=== PATIENT | male | born 1955 | race Caucasian/White ===

== ENCOUNTER 2018-04-12 14:22 | Emergency (ER) | payer OTHER ==
[2018-04-12 14:52] LABS: ADD MAN DIFF? NO
[2018-04-12 14:58] LABS: BASOPHILS % 0.8 % (0.0-2.0); EOSINOPHILS # 0.2 10^3/ul (0.0-0.5); HEMOGLOBIN 11.8 g/dl (14.0-18.0); LYMPHOCYTES # 0.8 10^3/ul (0.8-2.9); LYMPHOCYTES % 16.9 % (15.0-51.0); MEAN CORPUSCULAR HEMOGLOBIN 27.4 pg (29.0-33.0); MEAN CORPUSCULAR HGB CONC 32.8 g/dl (32.0-37.0); MEAN CORPUSCULAR VOLUME 83.7 fl (82.0-101.0); MEAN PLATELET VOLUME 10.8 fl (7.4-10.4); MONOCYTE # 0.5 10^3/ul (0.3-0.9); NEUTROPHIL # 3.2 10^3/ul (1.6-7.5); NEUTROPHILS % 67.1 % (39.0-77.0); PLATELET COUNT 142 10^3/UL (140-415); RED CELL DISTRIBUTION WIDTH 14.4 % (11.5-14.5)
[2018-04-12 14:58] LABS: WHITE BLOOD COUNT 4.8 10^3/ul (4.8-10.8)
[2018-04-12 15:18] LABS: INR 1.57; PROTIME 19.1 Sec (11.9-14.9); PT RATIO 1.5
[2018-04-12 15:19] LABS: PARTIAL THROMBOPLASTIN TIME 32.6 Sec (25.0-35.0)
[2018-04-12] MEDS: LIDOCAINE 1% (MPF) 5 ML VIAL (16:01)
[2018-04-12 17:21] LABS: ALANINE AMINOTRANSFERASE 20 IU/L (13-69); ALBUMIN 3.2 g/dl (3.3-4.9); ALBUMIN/GLOBULIN RATIO 0.76; ALKALINE PHOSPHATASE 196 IU/L (42-121); ANION GAP 12 (8-16); ASPARTATE AMINO TRANSFERASE 30 IU/L (15-46); BILIRUBIN,INDIRECT 0.6 mg/dl (0-1.1); BILIRUBIN,TOTAL 0.6 mg/dl (0.2-1.3); BLOOD UREA NITROGEN 13 mg/dl (7-20); CALCIUM 8.3 mg/dl (8.4-10.2); CARBON DIOXIDE 26 mmol/L (21-31); CHLORIDE 106 mmol/L (97-110); CREATININE 0.91 mg/dl (0.61-1.24); GLUCOSE 217 mg/dl (70-220); LIPASE 47 U/L (23-300); POTASSIUM 3.5 mmol/L (3.5-5.1); SODIUM 140 mmol/L (135-144); TOTAL PROTEIN 7.4 g/dl (6.1-8.1)
== END 2018-04-12 16:23 | disposition home or self-care (01) ==
LOC: E/R 14:22
DX: R18.8 Other ascites (principal); E11.9 Type 2 diabetes mellitus without complications; I10 Essential (primary) hypertension; R10.9 Unspecified abdominal pain; Z79.4 Long term (current) use of insulin; Z98.61 Coronary angioplasty status
CPT/HCPCS: 49083; 80053; 83690; 85025; 85610; 85730; 99285-25

== ENCOUNTER 2018-10-27 18:17 | Inpatient (IN) | payer MEDICAID, OTHER ==
[2018-10-27 19:27] LABS: ADD MAN DIFF? NO
[2018-10-27 19:31] LABS: BASOPHILS % 0.4 % (0.0-2.0); EOSINOPHILS % 0.3 % (0.0-7.0); HEMATOCRIT 40.7 % (42.0-52.0); HEMOGLOBIN 13.3 g/dl (14.0-18.0); LYMPHOCYTES # 0.7 10^3/ul (0.8-2.9); LYMPHOCYTES % 6.9 % (15.0-51.0); MEAN CORPUSCULAR HEMOGLOBIN 26.8 pg (29.0-33.0); MEAN CORPUSCULAR HGB CONC 32.7 g/dl (32.0-37.0); MEAN CORPUSCULAR VOLUME 82.1 fl (82.0-101.0); MONOCYTE # 0.6 10^3/ul (0.3-0.9); MONOCYTES % 5.8 % (0.0-11.0); NEUTROPHIL # 8.5 10^3/ul (1.6-7.5); NEUTROPHILS % 86.3 % (39.0-77.0); PLATELET COUNT 160 10^3/UL (140-415); RED BLOOD COUNT 4.96 10^6/ul (4.70-6.10); RED CELL DISTRIBUTION WIDTH 14.6 % (11.5-14.5)
[2018-10-27 19:31] LABS: WHITE BLOOD COUNT 9.8 10^3/ul (4.8-10.8)
[2018-10-27 19:41] LABS: ALANINE AMINOTRANSFERASE 22 IU/L (13-69); ALBUMIN 3.8 g/dl (3.3-4.9); ALBUMIN/GLOBULIN RATIO 0.73; ALKALINE PHOSPHATASE 294 IU/L (42-121); ANION GAP 16 (5-13); ASPARTATE AMINO TRANSFERASE 50 IU/L (15-46); BILIRUBIN,INDIRECT 1.5 mg/dl (0-1.1); BILIRUBIN,TOTAL 1.5 mg/dl (0.2-1.3); BLOOD UREA NITROGEN 16 mg/dl (7-20); CALCIUM 9.5 mg/dl (8.4-10.2); CARBON DIOXIDE 24 mmol/L (21-31); CHLORIDE 100 mmol/L (97-110); CREATININE 0.76 mg/dl (0.61-1.24); Estimated GFR > 60 mL/min (>60); GLUCOSE 247 mg/dl (70-220); LIPASE 71 U/L (23-300); POTASSIUM 4.1 mmol/L (3.5-5.1); SODIUM 140 mmol/L (135-144)
[2018-10-27] MEDS: SOD CHLORIDE 0.9% 1,000 ML IV (19:49)
[2018-10-27] MEDS: ONDANSETRON 4 MG INJ IV (19:50)
[2018-10-27] MEDS: morphine 4 MG/ML VIAL IV (19:50)
[2018-10-27 19:52] LABS: TROPONIN-I < 0.012 ng/ml (0.000-0.120)
[2018-10-27] MEDS ORDERED: ACETAMINOPHEN 325 MG TAB PO (21:00)
[2018-10-27] MEDS ORDERED: ONDANSETRON 4 MG INJ IV (21:00)
[2018-10-27 21:33] LABS: INR 1.45; PROTIME 17.7 Sec (11.9-14.9); PT RATIO 1.4
[2018-10-27 21:34] LABS: PARTIAL THROMBOPLASTIN TIME 31.1 Sec (23.0-35.0)
[2018-10-27] MEDS ORDERED: NACL 0.9% 3 ML SYG IV (22:30)
[2018-10-27] MEDS ORDERED: GLUCOSE GEL 15 GRAM TUBE BUCCAL (23:00)
[2018-10-27] MEDS ORDERED: DEXTROSE 50% 50 ML SYRINGE IV ×2 (23:00)
[2018-10-27] MEDS ORDERED: GLUCAGON 1 MG INJ IM (23:00)
[2018-10-27] MEDS ORDERED: GLUCOSE GEL 15 GRAM TUBE PO ×2 (23:00)
[2018-10-28] MEDS ORDERED: PROPOFOL 20 ML (00:09)
[2018-10-28] MEDS ORDERED: LIDOCAINE 2% (SDV) 5 ML INJ (00:09)
[2018-10-28] MEDS ORDERED: MIDAZOLAM 1 MG/ML 2 ML INJ (00:09)
[2018-10-28] MEDS ORDERED: ROCURONIUM 50 MG INJ (00:09)
[2018-10-28] MEDS ORDERED: ROPIVACAINE 0.5 % 30 ML VIAL (00:09)
[2018-10-28] MEDS ORDERED: CEFAZOLIN 1 GM INJ (00:30)
[2018-10-28] MEDS ORDERED: metroNIDAZOLE 500 MG/NS (PMX) 100 ML IVPB (00:30)
[2018-10-28] MEDS ORDERED: DESFLURANE 15 MIN (00:30)
[2018-10-28] MEDS ORDERED: VASOPRESSIN 20 UNITS INJ (00:32)
[2018-10-28] MEDS ORDERED: ONDANSETRON 4 MG INJ (00:43)
[2018-10-28] MEDS: LIDOCAINE 1% (MPF) 30 ML INJ (01:00)
[2018-10-28] MEDS: BUPIVACAINE 0.5%/EPI (SDV) 30 ML INJ (01:00)
[2018-10-28] MEDS ORDERED: morphine 10 MG INJ (01:31)
[2018-10-28] MEDS: ACCU-CHEK XX (02:00)
[2018-10-28] MEDS ORDERED: HYDROmorphONE 1 MG/5 ML IV SYRINGE IV ×2 (02:00)
[2018-10-28 06:11] LABS: ADD MAN DIFF? NO
[2018-10-28 06:13] LABS: WHITE BLOOD COUNT 9.7 10^3/ul (4.8-10.8)
[2018-10-28 06:13] LABS: ABNORMAL IP MESSAGE 1; BASOPHILS % 0.3 % (0.0-2.0); EOSINOPHILS % 0.2 % (0.0-7.0); HEMATOCRIT 39.5 % (42.0-52.0); HEMOGLOBIN 12.8 g/dl (14.0-18.0); LYMPHOCYTES # 0.5 10^3/ul (0.8-2.9); MEAN CORPUSCULAR HEMOGLOBIN 27.4 pg (29.0-33.0); MEAN CORPUSCULAR HGB CONC 32.4 g/dl (32.0-37.0); MEAN CORPUSCULAR VOLUME 84.4 fl (82.0-101.0); MEAN PLATELET VOLUME 10.7 fl (7.4-10.4); MONOCYTE # 0.4 10^3/ul (0.3-0.9); MONOCYTES % 4.5 % (0.0-11.0); NEUTROPHIL # 8.7 10^3/ul (1.6-7.5); NEUTROPHILS % 89.9 % (39.0-77.0); PLATELET COUNT 145 10^3/UL (140-415); POSITIVE DIFF @See below; RED BLOOD COUNT 4.68 10^6/ul (4.70-6.10)
[2018-10-28] MEDS: PANTOPRAZOLE 40 MG INJ IV (06:50)
[2018-10-28 07:26] LABS: ALANINE AMINOTRANSFERASE 24 IU/L (13-69); ALBUMIN 3.1 g/dl (3.3-4.9); ALBUMIN/GLOBULIN RATIO 0.72; ALKALINE PHOSPHATASE 208 IU/L (42-121); ANION GAP 11 (5-13); ASPARTATE AMINO TRANSFERASE 36 IU/L (15-46); BILIRUBIN,INDIRECT 1.1 mg/dl (0-1.1); BILIRUBIN,TOTAL 1.5 mg/dl (0.2-1.3); BLOOD UREA NITROGEN 16 mg/dl (7-20); CALCIUM 8.6 mg/dl (8.4-10.2); CARBON DIOXIDE 26 mmol/L (21-31); CHLORIDE 105 mmol/L (97-110); CHOL/HDL RATIO 3.1 RATIO; CHOLESTEROL 136 mg/dl (100-200); CREATININE 0.83 mg/dl (0.61-1.24); Estimated GFR > 60 mL/min (>60); GLUCOSE 236 mg/dl (70-220); HDL CHOLESTEROL 43 mg/dl (30-78); LDL CHOLESTEROL,CALCULATED 73 mg/dl; MAGNESIUM 1.5 mg/dl (1.7-2.5); POTASSIUM 4.3 mmol/L (3.5-5.1); SODIUM 142 mmol/L (135-144); TOTAL PROTEIN 7.4 g/dl (6.1-8.1); TRIGLYCERIDES 99 mg/dl (0-149)
[2018-10-28] MEDS: INSULIN ASPART [NOVOLOG] 3 ML PEN SC ×6 (07:45→21:00)
[2018-10-28 08:00] LABS: ANISOCYTOSIS 1+ (0-0); BAND NEUTROPHILS #M 3.4 10^3/ul (0.0-0.6); BAND NEUTROPHILS % (M) 36 % (0-4); LYMPHOCYTES #M 0.3 10^3/ul (0.8-2.9); LYMPHOCYTES % (M) 4 % (15-51); MICROCYTOSIS 1+ (0-0); MONOCYTES % (M) 1 % (0-11); PLATELET ESTIMATE NORMAL; POIKILOCYTOSIS 1+ (0-0); SEG NEUT #M 6.1 10^3/ul (1.6-7.5); SEGMENTED NEUTROPHILS (M) % 59 % (39-77); SMUDGE%M 2 % (0-0)
[2018-10-28 08:23] LABS: HEMOGLOBIN A1C 10.2 % (0-5.9)
[2018-10-28] MEDS: INSULIN GLARGINE [LANTus] (100 UNITS/ML) SYG SC ×2 (12:00→21:00)
[2018-10-28] MEDS: ONDANSETRON 4 MG INJ IV ×2 (13:33→16:41)
[2018-10-28] MEDS: LACTATED RINGER'S 1,000 ML IV (15:14)
[2018-10-28] MEDS: morphine 2 MG INJ IV (15:27)
[2018-10-29] MEDS: INSULIN ASPART [NOVOLOG] 3 ML PEN SC ×6 (00:39→21:00)
[2018-10-29] MEDS: ACCU-CHEK XX (02:00)
[2018-10-29] MEDS: LACTATED RINGER'S 1,000 ML IV (04:20)
[2018-10-29] MEDS: PANTOPRAZOLE 40 MG INJ IV (06:19)
[2018-10-29] MEDS: SOD CHLORIDE 0.9% 1,000 ML IV ×2 (13:02→23:26)
[2018-10-29] MEDS: MAGNESIUM SULFATE 2 GM/50 ML 50 ML IVPB (13:10)
[2018-10-29] MEDS: INSULIN GLARGINE [LANTus] (100 UNITS/ML) SYG SC (22:09)
[2018-10-29] MEDS: LORAZEPAM 2 MG INJ IV (23:43)
[2018-10-30] MEDS: INSULIN ASPART [NOVOLOG] 3 ML PEN SC ×6 (01:00→20:45)
[2018-10-30] MEDS: SOD CHLORIDE 0.9% 1,000 ML IV ×2 (01:50→12:57)
[2018-10-30] MEDS: ACCU-CHEK XX (02:00)
[2018-10-30] MEDS: PANTOPRAZOLE 40 MG INJ IV (05:47)
[2018-10-30] MEDS: INSULIN GLARGINE [LANTus] (100 UNITS/ML) SYG SC (20:54)
[2018-10-30] MEDS: LORAZEPAM 0.5 MG TAB PO (20:57)
[2018-10-31] MEDS: INSULIN ASPART [NOVOLOG] 3 ML PEN SC ×8 (01:00→20:40)
[2018-10-31] MEDS: ACCU-CHEK XX (01:38)
[2018-10-31] MEDS: SOD CHLORIDE 0.9% 1,000 ML IV ×2 (02:07→15:26)
[2018-10-31 05:11] LABS: ADD MAN DIFF? NO
[2018-10-31] MEDS: PANTOPRAZOLE 40 MG INJ IV (05:21)
[2018-10-31 05:27] LABS: BASOPHILS % 0.7 % (0.0-2.0); EOSINOPHILS # 0.2 10^3/ul (0.0-0.5); EOSINOPHILS % 4.1 % (0.0-7.0); HEMATOCRIT 37.7 % (42.0-52.0); HEMOGLOBIN 12.2 g/dl (14.0-18.0); LYMPHOCYTES # 0.8 10^3/ul (0.8-2.9); LYMPHOCYTES % 12.8 % (15.0-51.0); MEAN CORPUSCULAR HEMOGLOBIN 27.5 pg (29.0-33.0); MEAN CORPUSCULAR HGB CONC 32.4 g/dl (32.0-37.0); MEAN CORPUSCULAR VOLUME 84.9 fl (82.0-101.0); MEAN PLATELET VOLUME 10.7 fl (7.4-10.4); MONOCYTE # 0.5 10^3/ul (0.3-0.9); MONOCYTES % 9.2 % (0.0-11.0); NEUTROPHIL # 4.3 10^3/ul (1.6-7.5); NEUTROPHILS % 72.7 % (39.0-77.0); PLATELET COUNT 152 10^3/UL (140-415); RED BLOOD COUNT 4.44 10^6/ul (4.70-6.10); RED CELL DISTRIBUTION WIDTH 14.8 % (11.5-14.5)
[2018-10-31 05:27] LABS: WHITE BLOOD COUNT 5.9 10^3/ul (4.8-10.8)
[2018-10-31 05:46] LABS: ANION GAP 10 (5-13); BLOOD UREA NITROGEN 16 mg/dl (7-20); CARBON DIOXIDE 24 mmol/L (21-31); CHLORIDE 108 mmol/L (97-110); CREATININE 0.77 mg/dl (0.61-1.24); Estimated GFR > 60 mL/min (>60); GLUCOSE 138 mg/dl (70-220); PHOSPHORUS 2.6 mg/dl (2.5-4.9); POTASSIUM 3.9 mmol/L (3.5-5.1); SODIUM 142 mmol/L (135-144)
[2018-10-31] MEDS: INSULIN GLARGINE [LANTus] (100 UNITS/ML) SYG SC (20:40)
[2018-10-31] MEDS: ZOLPIDEM 5 MG TAB PO (22:45)
[2018-10-31] MEDS ORDERED: ZOLPIDEM 5 MG TAB PO (23:00)
[2018-11-01] MEDS: ACCU-CHEK XX (02:00)
[2018-11-01 05:12] LABS: ADD MAN DIFF? NO
[2018-11-01 05:28] LABS: WHITE BLOOD COUNT 5.6 10^3/ul (4.8-10.8)
[2018-11-01 05:28] LABS: BASOPHILS % 0.7 % (0.0-2.0); EOSINOPHILS # 0.2 10^3/ul (0.0-0.5); EOSINOPHILS % 3.9 % (0.0-7.0); HEMATOCRIT 36.9 % (42.0-52.0); HEMOGLOBIN 11.9 g/dl (14.0-18.0); LYMPHOCYTES # 0.8 10^3/ul (0.8-2.9); LYMPHOCYTES % 13.9 % (15.0-51.0); MEAN CORPUSCULAR HEMOGLOBIN 26.9 pg (29.0-33.0); MEAN CORPUSCULAR HGB CONC 32.2 g/dl (32.0-37.0); MEAN CORPUSCULAR VOLUME 83.5 fl (82.0-101.0); MEAN PLATELET VOLUME 10.2 fl (7.4-10.4); MONOCYTE # 0.6 10^3/ul (0.3-0.9); MONOCYTES % 10.8 % (0.0-11.0); NEUTROPHILS % 70.2 % (39.0-77.0); PLATELET COUNT 150 10^3/UL (140-415); RED BLOOD COUNT 4.42 10^6/ul (4.70-6.10); RED CELL DISTRIBUTION WIDTH 14.6 % (11.5-14.5)
[2018-11-01 05:49] LABS: ANION GAP 11 (5-13); BLOOD UREA NITROGEN 13 mg/dl (7-20); CALCIUM 8.1 mg/dl (8.4-10.2); CARBON DIOXIDE 24 mmol/L (21-31); CHLORIDE 106 mmol/L (97-110); CREATININE 0.79 mg/dl (0.61-1.24); Estimated GFR > 60 mL/min (>60); GLUCOSE 121 mg/dl (70-220); POTASSIUM 3.4 mmol/L (3.5-5.1); SODIUM 141 mmol/L (135-144)
[2018-11-01] MEDS: PANTOPRAZOLE 40 MG INJ IV (06:50)
[2018-11-01] MEDS: SOD CHLORIDE 0.9% 1,000 ML IV (07:10)
[2018-11-01] MEDS: INSULIN ASPART [NOVOLOG] 3 ML PEN SC ×2 (09:40→13:18)
[2018-11-01] MEDS: LIDOCAINE 1% (MPF) 5 ML VIAL (12:46)
== END 2018-11-01 17:00 | disposition home or self-care (01) | DRG 330 ==
LOC: TEL 10-28 02:03 → E/R 18:17 → MS1 10-29 23:07 → PP2 20:33
PROC: 0DB80ZZ Excision of Small Intestine, Open Approach (ICD-10-PCS; principal; 2018-10-28 00:11)
PROC: 0WQF0ZZ Repair Abdominal Wall, Open Approach (ICD-10-PCS; 2018-10-28 00:11)
PROC: 0W9G3ZZ Drainage of Peritoneal Cavity, Percutaneous Approach (ICD-10-PCS; 2018-10-28 00:11)
DX: K42.0 Umbilical hernia with obstruction, without gangrene (principal); K56.609 Unspecified intestinal obstruction, unspecified as to partial versus complete obstruction; R65.10 Systemic inflammatory response syndrome (SIRS) of non-infectious origin without acute organ dysfunction; R18.8 Other ascites; K80.20 Calculus of gallbladder without cholecystitis without obstruction; N40.1 Benign prostatic hyperplasia with lower urinary tract symptoms; I10 Essential (primary) hypertension; K74.60 Unspecified cirrhosis of liver; K21.9 Gastro-esophageal reflux disease without esophagitis; Z79.82 Long term (current) use of aspirin; E11.65 Type 2 diabetes mellitus with hyperglycemia; Z95.5 Presence of coronary angioplasty implant and graft; R35.0 Frequency of micturition; Z76.82 Awaiting organ transplant status
CPT/HCPCS: 36415; 71045; 74018; 74176; 80048; 80053; 80061; 82962; 83036; 83690; 83735; 84100; 84443; 84484; 85025; 85610; 85730; 88302; 88307; 93005; 96374; 96375; 99285-25